=== PATIENT | female | born 1970 | race Caucasian/White ===

== ENCOUNTER 2023-04-14 16:04 | Emergency (ER) | payer SELFPAY ==
[~2023-04-14] VITALS: Ht 152.4 cm; Wt 60.0 kg
[2023-04-14 16:10] VITALS: BP 118/90; PULSE 75; RESP 16; TEMP 98.4; O2SAT 99
== END 2023-04-14 21:58 | disposition home or self-care (01) ==
LOC: ER 16:04
DX: F10.129 Alcohol abuse with intoxication, unspecified (principal); E03.8 Other specified hypothyroidism; Z88.5 Allergy status to narcotic agent
CPT/HCPCS: 99283